=== PATIENT | female | born 1960 | race Caucasian/White ===

== ENCOUNTER 2020-03-22 13:52 | Observation (INO) | payer MEDICAID, MEDICARE, SELFPAY ==
--- NOTE | 2020-03-22 14:39 | RAD ---
XR Chest 1 View Portable History: Chest pain Comparison: None. Findings: Lungs are clear. No pneumothorax or effusion. Cardiac silhouette and mediastinal contours a re within normal limits. No acute osseous abnormality. Impression: No acute intrathoracic abnormality.
[2020-03-22 15:34] LABS: #Basophils 0.1 thou/uL (0.0-0.2); #Eosinphils 0.3 thou/uL (0.0-0.7); #Lymphocytes 2.7 thou/uL (1.20-3.40); #Monocytes 1.1 thou/uL (0.11-0.59); #Neutrophils 3.6 thou/uL (1.40-6.50); %Lymphocytes 34.7 % (21.0-51.0); %Monocytes 13.5 % (0.0-10.0); %Neutrophils 46.8 % (42.0-75.0); Hemoglobin 13.4 g/dL (12.0-16.0); Mean Corpuscular HGB CONC 31.8 g/dL (32.0-36.0); Mean Corpuscular Volume 97.4 fL (78.0-98.0); Mean Platelet Volume 6.8 fL (7.4-10.4); Platelet Count 312 thou/uL (130-400); RBC Distribution Width 12.5 % (11.5-14.5); Red Blood Cell (RBC) Count 4.31 mill/uL (4.20-5.40); White Blood Cell (WBC) Count 7.8 thou/uL (4.8-10.8)
[2020-03-22 15:51] LABS: ALT (SGPT) 33 U/L (8-55); AST (SGOT) 28 U/L (5-34); Albumin 4.1 g/dL (3.5-5.0); Alkaline Phosphatase 67 U/L (40-110); Anion Gap 14 mmol/L (10-20); BUN (Urea Nitrogen) 12 mg/dL (9.8-20.1); Bilirubin, Total 0.3 mg/dL (0.2-1.2); CK (CPK) 244 U/L (29-168); Calc. Creatinine Clearance 0 mL/min (70-130); Calcium 8.8 mg/dL (7.8-10.44); Carbon Dioxide 24 mmol/L (22-29); Chloride 105 mmol/L (98-107); Estimated GFR-MDRD Greater than 90; Globulin 3.2 g/dL (2.4-3.5); Glucose 82 mg/dL (70-105); Lipase 47 U/L (8-78); Potassium 3.9 mmol/L (3.5-5.1); Protein, Total 7.3 g/dL (6.0-8.3); Sodium 139 mmol/L (136-145)
--- NOTE | 2020-03-22 18:29 | PDOC.HHP ---
Hospitalist HPI - History of Present Illness Chest pain History of Present Illness: Ms. Elias is a 59-year-old female with a past medical history of hypertension, hyperlipidemia, angina, anxiety/depression, 2 pack/day smoker who presented to the emergency room for chest pain. Patient was on her way to a earlier today when she began to have a squeezing pressure feeling midsternum. Patient frequently gets these chest pains and takes nitroglycerin long-acting tablets on a regular basis. Patient reports that she unfortunately was out of these tablets, so took a short acting nitro with no relief. She then called EMS who administered her 3 nitroglycerin and aspirin which finally relieved her chest pain. Patient denies any shortness of breath, palpitations during these episodes. She denies any dizziness, lightheadedness, numbness, weakness, paresthesias. She reports a history of angina and has had a heart catheterization a few years ago with her sports health [employer] membership advisors, Dr. Simpson in [place]. She do es not remember having a stress test. She denies any other concerns or complaints at this time. Initial vital signs 142/90, 79, 18, 97.8, 95% on room air. EKG showed normal sinus rhythm with no ischemic changes. Initial troponin was less than 0.010. Chest x-ray with no acute findings. H/H 13.4/42.0. WBC 7.8. BUN/CR 12/0.63. Hospitalist ROS - Review of Systems Constitutional: denies: fever, chills, sweats, weakness, malaise, other Eyes: denies: pain, vision change, conjunctivae inflammation, eyelid inflammation, redness, other ENT: denies: ear pain, ear discharge, nose pain, nose discharge, nose congestion, mouth pain, mouth swelling, throat pain, throat swelling, other Respiratory: denies: cough, dry, shortness of breath, hemoptysis, SOB with excertion, pleuritic pain, sputum, wheezing, other Cardiovascular: reports: chest pain. denies: palpitations, orthopnea, paroxysmal noc. dyspnea, edema, light headedness, other Gastrointestinal: denies: nausea, vomiting, abdominal pain, diarrhea, constipation, melena, hematochezia, other Genitourinary: denies: dysuria, frequency, incontinence, hematuria, retention, other Musculoskeletal: denies: neck pain, shoulder pain, arm pain, back pain, hand pain, leg pain, foot pain, other Skin: denies: rash, lesions, rudi, bruising, other Neurological: denies: weakness, numbness, incoordination, change in speech, confusion, seizures, other - Medication Medications: Home medications include Nitroglycerin Cymbalta Avastin Etodolac Atorvastatin No known drug allergies Hospitalist History - Past Medical History Other Medical History: Past medical history includes Hypertension Hyperlipidemia Angina Anxiety and depression Tobacco dependence - Past Surgical History Other Surgical History: Past surgical history includes Tubal ligation - Family History Other Family History: Family history significant for cardiac disease and patient's father beginning in his 70s, and stroke in patient's mother beginning in her 70s as well. - Social History Smoking Status: Current every day smoker Tobacco Type: cigarettes Alcohol: reports: Rare Drugs: reports: none Living Situation: Alone (Patient is and lives alone) Activity level: independent ambulation - Exam General Appearance: NAD, awake alert Eye: PERRL, anicteric sclera ENT: normocephalic atraumatic, no oropharyngeal lesions, moist mucosa Neck: supple, symmetric, no JVD, no thyromegaly, no lymphadenopathy, no carotid bruit Heart: RRR, no murmur, no gallops, no rubs, normal peripheral pulses Respiratory: CTAB, no wheezes, no rales, no ronchi, normal chest expansion, no tachypnea, normal percussion Gastrointestinal: soft, non-tender, non-distended, normal bowel sounds, no palpable masses, no hepatomegaly, no splenomegaly, no bruit Extremities: no cyanosis, no clubbing, no edema Skin: normal turgor, no lesions, no rashes Neurological: cranial nerve grossly intact, normal sensation to touch, no weakness, no focal deficits, no new deficit Musculoskeletal: normal tone, normal strength, no muscle wasting Psychiatric: normal affect, normal behavior, A&O x 3 Hospitalist Results - Labs Result Diagrams: 03/22/20 15:21 03/22/20 15:21 Lab results: WBC 7.8 thou/uL (4.8-10.8) 03/22/20 15:21 Hgb 13.4 g/dL (12.0-16.0) 03/22/20 15:21 Hct 42.0 % (36.0-47.0) 03/22/20 15:21 MCV 97.4 fL (78.0-98.0) 03/22/20 15:21 Plt Count 312 thou/uL (130-400) 03/22/20 15:21 Neutrophils % 46.8 % (42.0-75.0) 03/22/20 15:21 Sodium 139 mmol/L (136-145) 03/22/20 15:21 Potassium 3.9 mmol/L (3.5-5.1) 03/22/20 15:21 Chloride 105 mmol/L (98-107) 03/22/20 15:21 Carbon Dioxide 24 mmol/L (22-29) 03/22/20 15:21 BUN 12 mg/dL (9.8-20.1) 03/22/20 15:21 Creatinine 0.63 mg/dL (0.6-1.1) 03/22/20 15:21 Glucose 82 mg/dL (70-105) 03/22/20 15:21 Calcium 8.8 mg/dL (7.8-10.44) 03/22/20 15:21 Total Bilirubin 0.3 mg/dL (0.2-1.2) 03/22/20 15:21 AST 28 U/L (5-34) 03/22/20 15:21 ALT 33 U/L (8-55) 03/22/20 15:21 Alkaline Phosphatase 67 U/L (40-110) 03/22/20 15:21 Creatine Kinase 244 U/L (29-168) H 03/22/20 15:21 Troponin I Less than 0.010 ng/mL (< 0.028) 03/22/20 15:21 Serum Total Protein 7.3 g/dL (6.0-8.3) 03/22/20 15:21 Albumin 4.1 g/dL (3.5-5.0) 03/22/20 15:21 Lipase 47 U/L (8-78) 03/22/20 15:21 Hospitalist H&P A/P - Plan Plan: Chest pain 59-year-old female with past medical history significant for tobacco use, hypertension, hyperlipidemia, angina who presents with chest pain not relieved by home nitroglycerin. Patient received sublingual nitro x3 as well as aspirin in the emergency room and is now resting comfortably. Initial troponin less than 0.01, EKG with no ischemic changes. Patient follows with Dr. Tatiana brambila ardiologist in [facility]. Patient does report a heart catheterization a few years ago which she reports showed angina. We will obtain these medical records. Will admit patient for ACS rule out. Plan Telemetry monitoring Trend troponins Stress test in a.m. if troponins stay negative ASA, statin TSH, magnesium Hyperlipidemia We will continue patient's home atorvastatin, as well as recheck lipid level. Hypertension History of hypertension, patient not on any antihypertensive medications. Mildly hypertensive to 142/90 on admission. We will continue to monitor and treat if needed. Anxiety and depression History of anxiety and depression on Cymbalta. Patient denies SI/HI at this time. We will continue home medication. Tobacco dependence Patient is a 2 pack/day smoker. Patient counseled on smoking cessation. DVT prophylaxisLovenox Full codeMDM patient's son Reece Coon Case discussed with attending physician, Dr. Mayer.
[2020-03-22 18:54] LABS: Troponin I Less than 0.010 ng/mL (< 0.028)
[2020-03-22] MEDS ORDERED: Nitroglycerin 0.4 MG TAB (25 Tab Bottle) SL PRN (18:58)
[2020-03-22 20:50] LABS: Troponin I Less than 0.010 ng/mL (< 0.028)
[2020-03-22] MEDS ORDERED: Nitroglycerin 2% Ointment 1 INCH/1 GM Packet ONE (21:49)
[2020-03-22] MEDS: Nitroglycerin 2% Ointment 1 INCH/1 GM Packet TOP SCH (22:08)
[2020-03-23] MEDS ORDERED: Acetaminophen 325 MG TAB ONE ×3 (00:53→07:37)
[2020-03-23] MEDS: Acetaminophen 325 MG TAB PO PRN ×2 (00:56→07:43)
[2020-03-23 05:36] LABS: Cardiac Risk 2.3 (Less than 4.5)
[2020-03-23] MEDS: Nitroglycerin 2% Ointment 1 INCH/1 GM Packet TOP SCH (06:21)
[2020-03-23] MEDS ORDERED: Aspirin Chewable 81 MG TAB ONE (07:37)
[2020-03-23] MEDS ORDERED: Aspirin 81 mg Enteric Coated Tablet PO SCH (09:00)
[2020-03-23] MEDS ORDERED: Enoxaparin Sodium 40 MG/0.4 ML SYRINGE SC SCH (09:00)
[2020-03-23] MEDS ORDERED: Regadenoson 0.4 MG/5 ML SYRINGE ONE ×2 (10:38→14:07)
[2020-03-23 10:59] LABS: SARS-CoV-2 MS2 Positive; SARS-CoV-2 N Gene Negative; SARS-CoV-2 S Gene Negative; SARS-CoV-2 by NAA Not Detected (NotDetected); SARS-CoV-2 orf1ab Negative
--- NOTE | 2020-03-23 12:20 | NM ---
EXAM: NM Cardiac Stress W EF WF PROVIDED CLINICAL HISTORY: Chest pain COMPARISON: None FINDINGS: This examination is performed as a pharmacologic myocardial perfusion stress test after the administr ation of adenosine intravenously. No significant reversible defect is seen between the stress and resting acquisitions. Quantitative an alysis also shows no significant reversible defect. Gated images demonstrate normal ventricular wall motion and wall thickening. Calculated left ventricular ejection fraction is 80%. IMPRESSION: 1. Normal myocardial perfusion study without evidence of a reversible defect seen to suggest ischemia . 2. Normal LVEF of 80%.
[2020-03-23] MEDS ORDERED: Bisacodyl 10 MG SUPP ONE (13:03)
--- NOTE | 2020-03-23 22:24 | DIS ---
DATE OF ADMISSION: 03/22/2020 DATE OF DISCHARGE: 03/23/2020 DISCHARGE DIAGNOSES: 1. Chest pain, possibly secondary to gastroesophageal reflux disease versus esophageal spasms. 2. Hypercholesterolemia. CONSULTATIONS: None. PROCEDURE: Nuclear stress test. BRIEF HISTORY OF PRESENT ILLNESS: This is a 59-year-old female with past medical history of hypertension, hyperlipidemia, who presented to the emergency room for chest pain. The patient was on her way to a when she reported having squeezing pressure in her midsternum. She states nitroglycerin usually relieves her pain; however, she did not have any relief after three nitroglycerin, so she came to the ER. Her EKG showed normal sinus rhythm. Chest x-ray was normal. She has been admitted to the hospital for further workup. HOSPITAL COURSE: Chest pain: The patient had three sets of troponins, which were negative. Her nuclear stress test was normal. The patient was chest pain free at the time of discharge. She does report history of acid reflux and has a history of hiatal hernia. She states that she was prescribed an acid reflux medicine, but does not remember the name of it and that it did not help. She states that her PCP was supposed to switch to something stronger, but she never got the prescription. She was discharged with Protonix 40 mg daily. Given that she was an active smoker for two packs a day, she was advised to consider taking aspirin 81 mg p.o. daily if the Protonix does not work. I told her to follow up with her card runner in a week. She can take nitroglycerin as needed. Another possibility could be stress given this occurred around the time of a friend's , but the patient states that she has had these chest pains for months. Tobacco abuse: The patient reports that she tried nicotine patch in the past, which did not work. She also tried Chantix, which did not work. I advised her to consider seeing her PCP and switching her antidepressant to bupropion. DISCHARGE PHYSICAL EXAMINATION: VITAL SIGNS: Stable. GENERAL: The patient is alert, awake, and oriented x3. CVS: Regular rate and rhythm with no murmurs, rubs, or gallops. LUNGS: Clear to auscultation bilaterally. ABDOMEN: Positive bowel sounds. Soft, nontender, nondistended. EXTREMITIES: No edema. LABORATORY DATA: CBC 11/10: Normal. BMP 03/22: Normal. LFTs 03/22: Normal. CK 03/22: 244. Troponin I: Less than 0.010 x3. Lipid panel 03/23: Triglycerides 210, cholesterol 102, HDL 91, triglycerides 84. TSH: 1.7. COVID PCR 03/22: Negative. IMAGING: Chest x-ray 03/22: No acute disease. Nuclear stress test 03/23: Normal. DISCHARGE CONDITION: Stable. ACTIVITY: As tolerated. DIET: Regular diet. DISCHARGE MEDICATIONS: 1. Aspirin 81 mg p.o. daily. 2. Protonix 40 mg p.o. daily. DISCHARGE INSTRUCTIONS: The patient is to follow up with her card runner and her PCP in a week. She should try taking Protonix 40 mg daily and take nitroglycerin p.r.n. Consider taking aspirin 81 mg if no relief. Also consider bupropion for tobacco abuse cessation. Job ID: [id number] [id number]
== END 2020-03-23 14:21 | disposition home or self-care (01) ==
LOC: ERS 13:52 → ERHOLD 17:29
PROVIDERS: ADMIT Student in an Organized Health Care Education/Training Program; ATTEND Student in an Organized Health Care Education/Training Program
DX: R07.89 Other chest pain (principal); E78.00 Pure hypercholesterolemia, unspecified; K21.9 Gastro-esophageal reflux disease without esophagitis; E78.5 Hyperlipidemia, unspecified; I10 Essential (primary) hypertension; F41.9 Anxiety disorder, unspecified; F32.9 Major depressive disorder, single episode, unspecified; F17.210 Nicotine dependence, cigarettes, uncomplicated; F12.10 Cannabis abuse, uncomplicated; Z79.899 Other long term (current) drug therapy; Z20.828 Contact with and (suspected) exposure to other viral communicable diseases
CPT/HCPCS: 36415; 71045; 78452; 80053; 80061; 82550; 83690; 83735; 84443; 84484; 85025; 87635; 93005; 93017; 99406; A9500; J2785; U0003